=== PATIENT | female | born 1955 | race African-American/Black ===

== ENCOUNTER 2021-01-03 14:29 | Inpatient (IN) | payer OTHER ==
[~2021-01-03] VITALS: Ht 162.6 cm; Wt 49.4 kg
--- NOTE | ~2021-01-03 | EMS ---
[address] [address] EMS Patient Care Report Name: ISIDRO VINES Room #: REG GABRIEL Briggs#: [id number] Admission: 01/03/21 Attend Phys: Discharge: Date of : 53 Report #: [id number] THIS REPORT FOR: //name// Report Transmitted: 01/03/2021 16:35 EMS Care Summary [place], [place]/[facility] Incident [id number] @ 01/03/2021 13:56 Incident Location [address] [place], [place] [id number] Patient ISIDRO ADAMS Female, 65 Years 1955 Patient Address Patient History None Reported, Patient Allergies No known allergies, Patient Medications None Reported, Chief Complaint altered mental status Disposition Transported No Lights/Midnight Dispatch Reason Overdose/Poisoning/Ingestion Transported To [facility] Narrative S: 65 yo female was found walking around an apartment complex parking lot with altered LOC. Upon our arrival the pt was alert and oriented x 2, diaphoretic, hallucinating that someone was after her. The pt thinks there is a man standing near her that is going to hurt her. She denies any complaints of pain. no sob. no nausea. no vomiting. no weakness. The pt denies any drugs or etoh. The pt is able to answer some questions. She is very anxious and says someone is in the [address] [address] EMS Patient Care Report Name: ISIDRO VIENS Room #: [facility]#: [id number] Admission: 01/03/21 Attend Phys: Discharge: Date of : 53 Report #: [id number] ambulance with us. She is screaming and jumping like something is getting her at times. O: gcs- 14, no obvious resp distress noted. + diaphoretic. The pt was trying to get away from the hallucination. She was rolling all over the place, nearly falling off the cot. The pt was also trying to take the seatbelts off to escape the hallucination. Pt was transport to [facility] without any other changes. Initial Vitals @14:16P: 161,SpO2: 73, @14:15P: 153,R: 38,CO: 2,SpO2: 84, @14:16P: 93,BP: 187/128, @14:12P: 143,CO: 0,SpO2: 94, @14:10P: 152,CO: 7,SpO2: 91, @14:22P: 163,R: 16,BP: 160/93,Pain: 0/10,GCS: 14,Glucose: 170,Revised Trauma: 12, @14:11P: 153,R: 16,BP: 137/65,Pain: 0/10,GCS: 14,CO: 8,Revised Trauma: 12, Assessments @14:09MENTAL:Confused,Hallucinations,SKIN:Diaphoresis,HEENT:Head/Face: No Abnormalities,Eyes: No Abnormalities,Neck/Airway: No Abnormalities,LUNG SOUNDS:General: No Abnormalities,Left Upper: No Abnormalities,Right Upper: No Abnormalities,Left Lower: No Abnormalities,Right Lower: No Abnormalities,ABDOMEN:General: No Abnormalities,Left Upper: No Abnormalities,Right Upper: No Abnormalities,Left Lower: No Abnormalities,Right Lower: No Abnormalities,PELVIS//GI:No Abnormalities,EXTREMITIES:Left Arm: No Abnormalities,Right Arm: No Abnormalities,Left Leg: No Abnormalities,Right Leg: No Abnormalities,PULSE:NEURO:No Abnormalities, Impression Altered Mental Status Procedures @14:15ALS AssessmentResponse: UnchangedSucceeded Timeline 13:55,Call Received 13:55,Dispatch Notified 13:56,Dispatched 13:56,En Route 14:08,On Scene 14:09,At Patient 14:10,BP: / M,PULSE: 152,RR: R,SPO2: 91 Ox,ETCO2: ,BG: ,PAIN: ,GCS: , 14:11,BP: 137/65 M,PULSE: 153,RR: 16 R,SPO2: Ox,ETCO2: ,BG: ,PAIN: 0,GCS: 14, 14:12,BP: / M,PULSE: 143,RR: R,SPO2: 94 Ox,ETCO2: ,BG: ,PAIN: ,GCS: , 14:15,ALS Assessment,Response: UnchangedSucceeded, 14:15,BP: / M,PULSE: 153,RR: 38 R,SPO2: 84 Ox,ETCO2: ,BG: ,PAIN: ,GCS: , [facility] [address] [place] [address] EMS Patient Care Report Name: JASMYNYUMIKOAMY Summers Room #: REG GABRIEL Briggs#: [id number] Admission: 01/03/21 Attend Phys: Discharge: Date of : 53 Report #: [id number] 14:15,Depart Scene 14:16,BP: / M,PULSE: 161,RR: R,SPO2: 73 Ox,ETCO2: ,BG: ,PAIN: ,GCS: , 14:16,BP: 187/128 M,PULSE: 93,RR: R,SPO2: Ox,ETCO2: ,BG: ,PAIN: ,GCS: , 14:22,BP: 160/93 M,PULSE: 163,RR: 16 R,SPO2: Ox,ETCO2: ,B,PAIN: 0,GCS: 14, 14:25,At Destination 14:59,Call Closed Disclaimer v1.1 Copyright 2020 [employer] This EMS Care Summary contains data elements from the applicable legal record (which may be displayed differently). It is designed to provide pertinent information for the following purposes: continuity of care, clinical quality, and state data reporting. The complete legal record is available to ED staff and administrators of the receiving hospital in [employer] Patient Tracker. All data is provided "as is."
[2021-01-03 14:30] VITALS: BP 112/73
[2021-01-03 15:32] LABS: ABSOLUTE NEUTROPHILS 6.6 thou/uL (1.4-8.2); BASOPHILS 1.2 % (0.0-2.0); EOSINOPHILS 0.1 % (0.0-3.0); HEMATOCRIT 45.2 % (37.0-47.0); HEMOGLOBIN 14.4 gm/dL (12.0-15.0); LYMPHOCYTES 10.2 % (24.0-44.0); MCH 24.1 pg (26.0-34.0); MCHC 31.9 g/dL (28.0-37.0); MCV 75.6 fL (80.0-100.0); PLATELET COUNT 198 thou/uL (150-400); POLYS 82.5 % (36.0-66.0); RBC 5.98 mil/uL (4.20-5.00); RDW 15.1 % (10.5-14.5)
[2021-01-03 15:49] LABS: ALBUMIN 4.5 g/dL (3.4-5.0); CALCIUM 9.9 mg/dL (8.5-10.1); CREATININE 1.9 mg/dL (0.6-1.0); TOTAL PROTEIN 8.5 g/dL (6.4-8.2)
[2021-01-03 15:51] LABS: POTASSIUM 2.8 mmol/L (3.5-5.1)
[2021-01-03 15:56] LABS: URINE BLOOD NEGATIVE (Negative); URINE GLUCOSE-RANDOM* NEGATIVE (Negative); URINE KETONES TRACE (Negative); URINE LEUKOCYTES-REFLEX NEGATIVE (Negative); URINE NITRITE-REFLEX NEGATIVE (Negative); URINE PROTEIN (DIPSTICK) 2+ (Negative); URINE SPECIFIC GRAVITY >= 1.030 (1.005-1.035)
[2021-01-03 15:57] LABS: URINE CLARITY HAZY; URINE COLOR AMBER
[2021-01-03 15:58] LABS: ICTOTEST (BILI CONFIRMATORY) Negative (Negative); URINE BILIRUBIN NEGATIVE (Negative)
[2021-01-03 16:21] LABS: HYALINE CASTS 4-10 Moderate /LPF (None Seen); SQUAMOUS 0-3 Few /LPF (0-3)
[2021-01-03 16:22] LABS: BACTERIA-REFLEX 1-9 Few /HPF (None Seen); CRYSTALS None Seen /LPF (None Seen); MUCUS 4-6 Moderate strn/LPF (None Seen); URINE RBC None Seen /HPF (NONE SEEN); URINE WBC-REFLEX 0-5 Rare /HPF (0-5)
[2021-01-03 16:32] LABS: AMP/METHAMP POSITIVE (Negative); BARBITURATES Negative (Negative); BENZODIAZEPINES Negative (Negative); COCAINE Negative (Negative); METHADONE Negative (Negative); OPIATES Negative (Negative); PCP Negative (Negative)
[2021-01-03 16:37] LABS: SALICYLATE 4.6 mg/dL (2.8-20.0)
[2021-01-03 16:44] LABS: MAGNESIUM 2.6 mg/dL (1.8-2.4)
[2021-01-03 17:13] LABS: BE(vivo) -3.2 mmol/L (-2 to +3); HCO3 21.3 mmol/L (22.0-26.0); PCO2 VENOUS 36.5 mmHg (41.0-51.0); PO2 VENOUS 34.5 mmHg (35.0-45.0)
[2021-01-03 19:12] VITALS: BP 129/81
[2021-01-03 20:55] VITALS: BP 116/72
[2021-01-03 21:05] VITALS: BP 130/85
--- NOTE | 2021-01-03 22:00 | NUR ---
ASSUMED CARE OF PT FROM ED, UPON ARRIVAL TO ROOM 453 PT ALERT AND ORIENTED X4, CALM COOPERATIVE , AFTER 15 MINS PT BECAME VERY PARANOID LEAVING ROOM AND RUNNING THROUGH THE NURSING STATION, PT REDIRECTED TO ROOM, THEN PT PLACED IN GERHI CHAIR AND MOVED TO NURSING STATION UNTIL ROOM CLOSER TO NURSING STAIION WAS CLEANED. PT VERY AGIATED THINK PEOPLE ATE FOLLOWING HER. SENIOR LICENSING MANAGER KORI NOTIFED ORDER FOR HALDOL GIVEN , PT THEN MOVED TO ROOM 362 AND ATE BOX LUNCH AND THEN WENT TO SLEEP. CARDIAC REMAIN ON SHOWS NSR.WILL CONITINUE TO MONITOR AND REPORT CHANGES.
[2021-01-04 07:54] VITALS: BP 127/82
[2021-01-04 09:45] LABS: HEMATOCRIT 40.8 % (37.0-47.0); MCH 23.9 pg (26.0-34.0); MCV 74.8 fL (80.0-100.0); RBC 5.45 mil/uL (4.20-5.00); RDW 14.7 % (10.5-14.5); WBC 6.1 thou/uL (4.0-11.0)
[2021-01-04 10:03] LABS: CREATININE 0.7 mg/dL (0.6-1.0); POTASSIUM 3.5 mmol/L (3.5-5.1)
[2021-01-04 11:19] LABS: ALBUMIN 3.5 g/dL (3.4-5.0); DIRECT BILIRUBIN 0.4 mg/dL (<0.1-0.2); TOTAL BILIRUBIN 1.8 mg/dL (0.2-1.0)
[2021-01-04 11:20] LABS: % SATURATION 30 % (20-39); IRON 76 ug/dL (50-170); TIBC 251 ug/dL (250-450)
[2021-01-04 11:39] VITALS: BP 120/81
--- NOTE | 2021-01-04 12:29 | EKG ---
[address] [address] ELECTROCARDIOGRAM REPORT Name: ISIDRO VINES Room #: 362-P [facility] M.R.#: [id number] Admission: 01/03/21 Attend Phys: Doug Aaron MD Discharge: Date of : 53 Report #: [id number] [facility] ED Test Date: 2021-01-03 Test Time: 14:41:55 Pat Name: ISIDRO VINES Department: Room: [facility] Gender: F Web User Experience Strategist: JCDIANE : 1955 Requested By: Naima Dimas Order Number: [id number] MD: David Gary Measurements Intervals [place] Rate: 120 P: 34 OK: 92 QRS: 0 QRSD: 94 T: 54 QT: 462 QTc: 653 Interpretive Statements Sinus tachycardia Leftward axis Left ventricular hypertrophy Prolonged QT interval No previous ECG available for comparison Electronically Signed On 01-04-2021 12:28:53 CDT by David Gary [email or web address] <ELECTRONICALLY SIGNED> By: David Gary MD, [facility] 01/04/21 1228 1441 40 David Gary MD, FACC /EPI
[2021-01-04] MEDS ORDERED: NORVASC5 MG PO (13:34)
[2021-01-04 15:35] VITALS: BP 104/69
--- NOTE | 2021-01-04 17:27 | NUR ---
ASSUMED PATIENT CARE AT 0700. A/O X4. PATIENT HAD 5 LOOSE STOOL. CDIFF CHECKED. VSS. FORGETFUL. SLOWLY OWARDS POC GOALS.
[2021-01-04 20:24] VITALS: BP 122/80
[2021-01-05 04:44] VITALS: BP 142/90
[2021-01-05 05:52] LABS: HEMATOCRIT 39.3 % (37.0-47.0); HEMOGLOBIN 12.5 gm/dL (12.0-15.0); RBC 5.17 mil/uL (4.20-5.00); WBC 4.8 thou/uL (4.0-11.0)
[2021-01-05 05:55] LABS: MCH 24.1 pg (26.0-34.0); MCHC 31.7 g/dL (28.0-37.0); PLATELET COUNT 157 thou/uL (150-400); RDW 14.8 % (10.5-14.5)
[2021-01-05 06:18] LABS: ALBUMIN 3.2 g/dL (3.4-5.0); CALCIUM 8.9 mg/dL (8.5-10.1); CREATININE 0.6 mg/dL (0.6-1.0); MAGNESIUM 2.2 mg/dL (1.8-2.4); PHOSPHORUS 3.1 mg/dL (2.6-4.7); POTASSIUM 3.5 mmol/L (3.5-5.1); TOTAL PROTEIN 6.5 g/dL (6.4-8.2)
[2021-01-05 07:10] LABS: ABSOLUTE NEUTROPHILS 2.1 thou/uL (1.4-8.2)
[2021-01-05 07:11] LABS: LARGE PLATELETS FEW
[2021-01-05 07:12] LABS: ANISOCYTOSIS 1+
[2021-01-05 08:00] VITALS: BP 152/90
--- NOTE | 2021-01-05 11:21 | NUR ---
PT STATES SHE HAS FOUND HER EARRINGS. THIS RN INFORMED STAFF LOOKING FOR THEM.
[2021-01-05 15:43] VITALS: BP 147/100
[2021-01-05] MEDS ORDERED: VITAMIN B-1100 M2 PO (16:03)
[2021-01-05] MEDS ORDERED: SUPER THERAVIT1 EACH PO (16:04)
[2021-01-05 16:20] VITALS: BP 147/100
[2021-01-05] MEDS ORDERED: NORVASC 2.5 MG2.5 M1 PO (16:27)
--- NOTE | 2021-01-05 16:58 | NUR ---
PT REQUEST TAXI VOUCHER TO GO HOME. THIS RN CALLED G[employer]E [employer] DOOR MECHANIC FOR APPROVAL, APPROVAL PROVIDED.
--- NOTE | 2021-01-05 17:38 | NUR ---
ASSUMED PATIENT CARE AT 0700. A/O X4. AMBULATED IN HALLWAY WITH STEADY GAIT. DC TO HOME NOW.
== END 2021-01-05 17:39 | disposition home or self-care (01) | DRG 682 ==
LOC: ER 14:29 → EROBS 17:52 → 3W 17:52
PROVIDERS: Internal Medicine; Physician Assistant; ADMIT Hospitalist; ATTEND Hospitalist
DX: N17.0 Acute kidney failure with tubular necrosis (principal); R65.11 Systemic inflammatory response syndrome (SIRS) of non-infectious origin with acute organ dysfunction; E87.2 Acidosis; F15.951 Other stimulant use, unspecified with stimulant-induced psychotic disorder with hallucinations; N17.9 Acute kidney failure, unspecified; R44.1 Visual hallucinations; F10.20 Alcohol dependence, uncomplicated; M19.90 Unspecified osteoarthritis, unspecified site; E87.6 Hypokalemia; F17.210 Nicotine dependence, cigarettes, uncomplicated; I10 Essential (primary) hypertension; N63.10 Unspecified lump in the right breast, unspecified quadrant; Z20.822 Contact with and (suspected) exposure to COVID-19; Z88.8 Allergy status to other drugs, medicaments and biological substances
CPT/HCPCS: 10879